=== PATIENT | female | born 1955 | race Caucasian/White ===

== ENCOUNTER → 2016-09-14 15:37 | Outpatient (CLI) | payer MEDICAID ==
[~2016-09-14 15:37] MED LIST: CELEXA20 MG PO; ELIQUIS2.5 MG PO; KLONOPIN1 MG PO; OSPHENA 60 MG; OXYCODONE HCL5 MG PO; PREMARIN45 GM VG; ROXICODONE15 MG PO; VYVANSE30 MG PO; ZYRTEC-D T1 TAB.SR . PO
[2016-09-29 11:59] VITALS: BMI 21.9
== END | disposition home or self-care (01) ==
LOC: D.LABREF 15:37
DX: M16.12 Unilateral primary osteoarthritis, left hip (principal); Z11.8 Encounter for screening for other infectious and parasitic diseases

== ENCOUNTER 2016-09-24 09:30 | Inpatient (IN) | payer BC ==
[~2016-09-24] VITALS: Ht 170.2 cm; Wt 63.6 kg
[2016-09-24 09:14] LABS: BASOPHILS 0.4 % (0.0-2.0); EOSINOPHILS 2.6 % (0-7); HEMOGLOBIN 12.2 g/dL (12-16); IMMATURE GRANULOCYTES 0.2 % (0-5); LYMPHOCYTES 34.7 % (15-50); MCV 90.9 fL (80.0-100.0); MEAN PLATELET VOLUME 9.4 fL (7.4-10.4); MONOCYTES 9.9 % (2-11); NEUTROPHILS 52.2 % (40-80); PLATELET COUNT 286 10x3/uL (130-400); RBC 4.07 10x6/uL (4.00-5.40); RDW 12.1 % (11.5-14.5); WBC 4.6 10x3/uL (4.8-10.8)
[~2016-09-24 09:30] MED LIST changes: -ELIQUIS2.5 MG PO; -OXYCODONE HCL5 MG PO; -ROXICODONE15 MG PO
[2016-09-24 09:47] LABS: CALC OSMOLALITY 274 mosm/kg (275-300); CALCIUM 8.8 mg/dL (8.5-10.1); CARBON DIOXIDE 30.6 mmol/L (21.0-32.0); CHLORIDE - SERUM 104 mmol/L (98-107); CREATININE - SERUM 0.7 mg/dL (0.6-1.3); GLUCOSE 99 mg/dL (74-106); POTASSIUM - SERUM 4.5 mmol/L (3.5-5.1); SODIUM 138 mmol/L (136-145); UREA NITROGEN 10 mg/dL (7-18); eGFR NON AFRICAN AMERICAN 90 mL/min (90-120)
[2016-09-24 10:05] LABS: APTT 31.8 SECONDS (22.8-39.4); INR 1.12 (0.85-1.17); PROTIME 14.3 SECONDS (11.6-15.0)
[2016-09-24 10:06] LABS: APPEARANCE HAZY (CLEAR); COLOR YELLOW (YELLOW); SPECIFIC GRAVITY 1.005 (1.005-1.020)
[2016-09-24 10:07] LABS: BACTERIA MODERATE /hpf (NONE SEEN); BILIRUBIN NEGATIVE (NEGATIVE); GLUCOSE NEGATIVE (NEGATIVE); KETONE NEGATIVE (NEGATIVE); LEUKOCYTE ESTERASE NEGATIVE (NEGATIVE); NITRITE NEGATIVE (NEGATIVE); PROTEIN 1+ mg/dL (NEGATIVE); RED CELLS - URINE NONE SEEN /hpf (0-5); UROBILINOGEN NORMAL (NORMAL); WHITE CELLS - URINE NSEEN /hpf (0-5)
[2016-09-29 06:44] VITALS: BP 125/68; BMI 21.9
--- NOTE | 2016-09-29 11:14 | NUR ---
UPON ARRIVAL IN THE PATIENT WAS ROLLING AROUND IN BED AND APPEARED UNCOMFORTABLE
[2016-09-29 11:45] VITALS: BP 141/70
[2016-09-29 11:59] VITALS: BP 141/70; Ht 170.2 cm; Wt 63.6 kg
[2016-09-29 12:02] VITALS: BP 141/70
--- NOTE | 2016-09-29 12:02 | NUR ---
RECIEVED PATIENT VIA BED WITH CAROL REIS FROM RECOVER ROOM AT 1145. PATIENT IS DROWSY, RATED PAIN AT A 9/10. ADMINISTERED TORADOL IV AND TYLENOL PO SCHEDULED. PATIENT IS NOW RESTING QUIETLY WITH EYES CLOSED. NO SIGNS OF DISTRESS NOTED. PALPATED BILATERAL PEDAL PULSES, +2 BILATERALLY. DRESSING TO LEFT HIP IS CLEAN, DRY AND INTACT. BED IN LOWEST POSITION, CALL LIGHT IN REACH. BED RAILS UP X'S 3. BED ALARM ON.
--- NOTE | 2016-09-29 14:49 | NUR ---
ANCEF IVPB AND PROTONIX PO. IS GIVEN TO PATIENT WITH RETURN DEMONSTRATION. PILLOW GIVEN TO PATIENT. CALL LIGHT IN REACH. WILL CONTINUE WITH PLAN OF CARE.
--- NOTE | 2016-09-29 14:55 | NUR ---
PASSWORD OBTAINED AND PLACED IN COMPUTER.
[2016-09-29 16:00] VITALS: BP 131/57
--- NOTE | 2016-09-29 16:56 | NUR ---
NO NEEDS VOICED AT THIS TIME. VISITOR AT BEDSIDE. CALL LIGHT IN REACH.
--- NOTE | 2016-09-29 17:19 | NUR ---
TORADOL AND TYLENOL PER DR. LORA'S ORDERS. WAITING ON EYE DROPS.
--- NOTE | 2016-09-29 18:12 | NUR ---
EYE DROPS TO LEFT EYE PER ORDER. NO CHANGES IN INITIAL ASSESSMENT. CALL LIGHT IN REACH. WILL CONTINUE WITH PLAN OF CARE. SCDs TO BLE. ICE TO LEFT HIP.
[2016-09-29 20:00] VITALS: BP 127/53
--- NOTE | 2016-09-29 21:27 | NUR ---
PATIENT RESTING QUIETLY NO SIGNS OF DISTRESS NOTED. ASSISTED WITH BEDPAN. VOIDED WITHOUT DIFFICULTY. SCHEDULED MEDICATIONS GIVEN. SHIFT ASSESSMENT COMPLETED. DENIES ANY NEEDS AT THIS TIME. BED LOW. CALL LIGHT IN REACH
[2016-09-30] VITALS: BP 129/56
[2016-09-30 04:00] VITALS: BP 123/55
--- NOTE | 2016-09-30 04:00 | NUR ---
PATIENT SLEEPING WITH NO DISTRESS NOTED. AGREE WITH GLASS PROCESSING WORKER ASSESSMENT.
[2016-09-30 06:07] LABS: BASOPHILS 0.2 % (0.0-2.0); EOSINOPHILS 0.2 % (0-7); HEMATOCRIT 27.3 % (36.0-48.0); HEMOGLOBIN 9.1 g/dL (12-16); IMMATURE GRANULOCYTES 0.2 % (0-5); MCH 29.7 pg (26.0-34.0); MCHC 33.3 g/dL (31.0-37.0); MCV 89.2 fL (80.0-100.0); MEAN PLATELET VOLUME 9.2 fL (7.4-10.4); MONOCYTES 15.5 % (2-11); NEUTROPHILS 63.9 % (40-80); PLATELET COUNT 246 10x3/uL (130-400); RBC 3.06 10x6/uL (4.00-5.40); RDW 12.1 % (11.5-14.5); WBC 5.7 10x3/uL (4.8-10.8)
[2016-09-30 06:45] LABS: ALBUMIN 2.5 g/dL (3.4-5.0); ALKALINE PHOSPHATASE 54 U/L (46-116); ALT (SGPT) 22 U/L (10-68); BILIRUBIN - TOTAL 0.76 mg/dL (0.2-1.3); CALC OSMOLALITY 275 mosm/kg (275-300); CALCIUM 7.7 mg/dL (8.5-10.1); CARBON DIOXIDE 25.1 mmol/L (21.0-32.0); CHLORIDE - SERUM 106 mmol/L (98-107); CREATININE - SERUM 0.7 mg/dL (0.6-1.3); GLUCOSE 107 mg/dL (74-106); POTASSIUM - SERUM 3.4 mmol/L (3.5-5.1); PROTEIN - SERUM 5.3 g/dL (6.4-8.2); SODIUM 139 mmol/L (136-145); UREA NITROGEN 8 mg/dL (7-18); eGFR NON AFRICAN AMERICAN 90 mL/min (90-120)
--- NOTE | 2016-09-30 07:00 | NUR ---
REPORT RECEIVED FROM DIETARY AIDE NURSE. CALL LIGHT IN REACH.
[2016-09-30 08:29] VITALS: BP 113/54
--- NOTE | 2016-09-30 09:50 | NUR ---
ASSISTED TO BSC PER PT. VOIDED 300 CC.
--- NOTE | 2016-09-30 10:11 | NUR ---
ASSESSMENT COMPLETED. AM MEDS ADMINISTERED. CALL LIGHT IN REACH. WILL CONTINUE WITH PLAN OF CARE.
--- NOTE | 2016-09-30 11:11 | NUR ---
SITTING IN CHAIR,WITHOUT DISTRESS.CALL LIGHT IN REACH
--- NOTE | 2016-09-30 11:16 | NUR ---
* Is the patient Alert and Oriented? Yes 0 * How many steps to enter\exit or inside your home? 0 0 * PCP Rachel Souza APN 0 * Pharmacy [facility] on [address] 0 * Preadmission Environment Home with Family 0 * ADLs Independent 0 * List name and contact numbers for known caregivers / representatives who currently or will assist patient after discharge: William Blackmon [phone] 0 * Additional services required to return to the preadmission environment? Yes 0 * Can the patient safely return to the preadmission environment? Yes 0 * Has this patient been hospitalized within the prior 30 days at any hospital? No 09/30/2016 11:17 DCP: Discharge Planning Patient Name: LUCY OSORIO Admission Status: Elective Accout number: [id number] Admission Date: 09-29-2016 : 1955 Admission Diagnosis:UNILATERAL PRIMARY OSTEOARTHRITIS, LEFT HIP Attending: KARLA Current LOS: 1 Anticipated DC Date: 10-01-2016 Planned Disposition: Outpatient PT\OT Primary Insurance: [employer] Discharge Planning Comments: CM met with patient to assess dc plans/needs. Patient states she lives at home with William Blackmon. She reports she is independent with all ADL's & IADL's. At dc, she will return home. She has chosen [facility] for outpatient physical therapy - Appt. scheduled 10/05 @ 1300. Rolling walker will be ordered & delivered to hospital through [facility] prior to discharge. Anticipate dc tomorrow afternoon. CM will follow. Fitter Tacker: Kasie Mejias
[2016-09-30 12:28] VITALS: BP 122/50
--- NOTE | 2016-09-30 12:59 | NUR ---
WANTS TO GET I&O CATH BUT I EXPLAINED TO HER THAT SHE VOIDED EARLIER AND THAT IS ONLY FOR WHEN SHE IS UNABLE TO VOID FOR 8-10 HOURS. VERBALIZED UNDERSTANDING.
--- NOTE | 2016-09-30 14:52 | NUR ---
TYLENOL SULMA SMITH RN.
--- NOTE | 2016-09-30 16:20 | NUR ---
NO NEEDS VOICED AT THIS TIME. CALL LIGHT IN REACH.
[2016-09-30 16:28] VITALS: BP 125/57
--- NOTE | 2016-09-30 18:03 | NUR ---
OXY IR AND TYLENOL PO PER CAROL AWAN. NO CHANGES IN INITIAL ASSESSMENT. SCDs TO BLE. CALL LIGHT IN REACH. WILL CONTINUE WITH PLAN OF CARE.
--- NOTE | 2016-09-30 18:31 | NUR ---
NO CHANGES IN INITIAL ASSESSMENT. CALL LIGHT IN REACH. SCDs TO BLE. WILL CONTINUE WITH PLAN OF CARE. BED ALARM IS ON.
[2016-09-30 19:00] VITALS: BP 92/52
--- NOTE | 2016-09-30 19:00 | NUR ---
BEDSIDE REPORT RECEIVED AND CARE OF PT ASSUMED. PT LYING IN SEMI BOTELLO'S POSITION VISITING WITH SPOUSE. IV IN RIGHT FA SL. DRESSING ON LEFT HIP CLEAN AND DRY. RE-FILLED ICE PACK AND APPLIED TO HIP. WILL MONITOR SALINAS FOR NEEDS.
--- NOTE | 2016-09-30 21:41 | NUR ---
HS MEDICATIONS GIVEN TO INCLUDE OXY IR PER PRN ORDER FOR PAIN. WILL CONTINUE TO MONITOR FOR NEEDS.
--- NOTE | 2016-09-30 21:45 | NUR ---
ASSISTED UP TO USE BSC. PT AMBULATING WELL WITH WALKER WITH SOME ASSISTANCE WHEN MOVING LEGS TO SIDE OF BED. WILL CONTINUE TO MONITOR FOR NEEDS. CALL LIGHT WITHIN REACH.
--- NOTE | 2016-10-01 03:07 | NUR ---
ASSISTED UP TO BSC TO VOID. GAVE SCHEDULED TYLENOL 1000 MG PO...GAVE A LITTLE LATE PT SLEEPING WELL OVER LAST COUPLE OF HOURS. POSITIONED BACK IN BED FOR COMFORT AND RE-FILLED ICE PACK. WILL CONTINUE TO MONITOR FOR NEEDS.
[2016-10-01 06:10] LABS: BASOPHILS 0.5 % (0.0-2.0); HEMOGLOBIN 8.7 g/dL (12-16); IMMATURE GRANULOCYTES 0.2 % (0-5); LYMPHOCYTES 15.6 % (15-50); MCH 29.5 pg (26.0-34.0); MCHC 32.2 g/dL (31.0-37.0); MONOCYTES 13.7 % (2-11); PLATELET COUNT 234 10x3/uL (130-400); RBC 2.95 10x6/uL (4.00-5.40); RDW 12.4 % (11.5-14.5); WBC 6.3 10x3/uL (4.8-10.8)
[2016-10-01 06:34] LABS: ALBUMIN 2.4 g/dL (3.4-5.0); ALKALINE PHOSPHATASE 54 U/L (46-116); ALT (SGPT) 23 U/L (10-68); CALC OSMOLALITY 275 mosm/kg (275-300); CALCIUM 8.2 mg/dL (8.5-10.1); CARBON DIOXIDE 25.1 mmol/L (21.0-32.0); CHLORIDE - SERUM 106 mmol/L (98-107); CREATININE - SERUM 0.6 mg/dL (0.6-1.3); GLUCOSE 120 mg/dL (74-106); PROTEIN - SERUM 5.4 g/dL (6.4-8.2); SODIUM 138 mmol/L (136-145); UREA NITROGEN 9 mg/dL (7-18); eGFR NON AFRICAN AMERICAN > 90 mL/min (90-120)
[2016-10-01 06:35] LABS: MCV 91.5 fL (80.0-100.0)
[2016-10-01 06:38] LABS: POTASSIUM - SERUM 3.4 mmol/L (3.5-5.1)
--- NOTE | 2016-10-01 06:48 | NUR ---
POTASSIUM LEVEL 3.4 THIS AM REQUIRING COVERAGE WITH 40MEQ PO POTASSIUM PER ELECTROLYTE PROTOCOL. WILL RE-CHECK IN 4 HOURS.
[2016-10-01] MEDS ORDERED: OXYCODONE HCL5 MG PO (07:08)
[2016-10-01] MEDS ORDERED: ELIQUIS2.5 MG PO (07:08)
[2016-10-01] MEDS ORDERED: ROXICODONE15 MG PO (07:13)
[2016-10-01 09:52] VITALS: BP 110/55
[2016-10-01 11:48] VITALS: BP 135/58
--- NOTE | 2016-10-01 13:00 | NUR ---
CHANGED DRESSING TO LEFT HIP. ALL GYPSY INTACT. NO REDNESS. STERILE TECHNIQUE MAINTAINED. CLEANED WITH STERILE WATER WOUND SPRAY, PATTED DRY WITH 4X4 GAUZE. APPLIED DRESSING.
--- NOTE | 2016-10-01 13:43 | NUR ---
10/01/2016 13:41 DCP: Discharge Planning Patient Name: LUCY OSORIO Encounter No: [id number] : 1955 Primary Insurance: [employer] Anticipated DC Date: 10-01-2016 Planned Disposition: Outpatient PT\OT External Planned Provider: [facility] DCP follow-up note: DC order rec'd. Patient and family in agreement with discharge plan. No changes to plan. Rolling walker has been delivered. Kasie Mejias
--- NOTE | 2016-10-01 15:16 | NUR ---
PATIENT LEAVING VIA WHEELCHAIR.
--- NOTE | 2016-10-06 10:25 | DS ---
PATIENT:LUCY OSORIO :57 MEDICAL RECORD: [id number] DISCHARGE SUMMARY ADMISSION DATE: 09/29/16 DISCHARGE DATE: 10/01/16 DATE OF ADMISSION: 09/29/2016. DATE OF DISCHARGE: 10/01/2016. ADMITTING DIAGNOSIS: Left hip degenerative joint disease. DISCHARGE DIAGNOSES: Left hip degenerative joint disease, postop acute blood loss anemia. HISTORY: This is a pleasant 61-year-old female with advanced degenerative changes in her hip. She came into the hospital and underwent a left total hip arthroplasty. She has overall done very well. It was felt that she could be discharged today, continue on post-hip protocols, continue progressing her weightbearing with assistance with therapy and walker. She can be on Eliquis for anticoagulation therapy. She is going to be on pain meds. She is going to see us an outpatient in 2 weeks. We will change her dressing. She should call if she is having problems. We will proceed from this juncture. TRANSINT:[id number] Voice Confirmation ID: [id number] DOCUMENT ID: [id number] JAIRO LORA MD at 1025 CC: [id number] DICTATION DATE: 10/01/16 0710 NEON SIGN WORKER: 10/01/16 0816 DIS IN 10/01/16 [id number] [place] [address]
--- NOTE | 2016-10-06 10:25 | OP ---
PATIENT NAME: LUCY OSORIO MEDICAL RECORD: [id number] :[birth year] LOCATION:[facility] ADMISSION DATE:09/29/16 SURGEON: JAIRO MAYFIELD MD DATE OF OPERATION: 09/29/2016 PREOPERATIVE DIAGNOSIS: Left hip degenerative joint disease. POSTOPERATIVE DIAGNOSIS: Left hip degenerative joint disease. PROCEDURE PERFORMED: Left total hip arthroplasty using Biomet system. SURGEON: John Mayfield MD. ANESTHESIA: General with a block for postop pain. ESTIMATED BLOOD LOSS: Minimal, 100 mL. CONDITION: She tolerated the procedure well, was transferred to recovery room in stable condition. INDICATIONS: A 61-year-old female with advanced degenerative changes of her hip, no longer tolerating nonoperative treatments including therapy, injections, pain meds. She wants to have a hip replacement. We discussed risks and alternatives including blood loss, scar, pain, need for further procedure, anesthesia risk, nerve, artery and vein injuries, leg length discrepancy, failure of the components. She understood and wished to proceed. OPERATIVE REPORT: The patient was taken to the operating room and placed in supine position. General anesthesia was obtained. She had a block placed in the preop holding area. She received Ancef per protocol. The left hip was confirmed to be the correct hip. She was placed in a lateral position with the left hip up. She was prepped and draped in the normal fashion. She had a secondary ChloraPrep and then Ioban dressing placement. This was followed by a lateral incision, taking down to the IT band. The IT band was split. Charnley retractor was placed. The anterior portion of the gluteus medius and capsule were taken off as a unit. The hip was dislocated. Using the guide, the femoral neck cut was made. The anterior and posterior acetabular retractors were then placed. The soft tissue was removed from about the rim. She was then sequentially reamed up to a 49. Following which, a 50 press-fit cup was placed. This was felt to be in good position. She was then irrigated. The leg was taken off the bed into a bag. She had a cookie cutter and a canal finder followed by broaching up to a size 16. X-ray was taken in the room. X-rays indicated that the leg lengths were very close with the standard head and neck. We therefore took out everything, copiously irrigated and placed the final 16 stem with a 44 head standard neck length high-offset stem. This reduced well. She felt very stable in flexion and extension. She was copiously irrigated. Following this, 2 JuggerKnot suture anchors were placed in the trochanter area. The gluteus medius capsule was brought back to the trochanter with the sutures. She was then irrigated following which her IT band was closed with #1 barbed PDS, #2 double-stranded looped PDS. I then closed with 2-0 Vicryl, kishor, and placed a soft dressing. She was awakened and transferred to the recovery room in stable condition, having tolerated the procedure well. TRANSINT:[id number] Voice Confirmation ID: [id number] DOCUMENT ID: [id number] OPERATIVE REPORT [id number] LUCY OSORIO, JAIRO PAINTING MD at 1025 CC: [id number] DICTATION DATE: 09/29/16 110 COLLATOR: 09/29/16 1155 DIS IN 10/01/16 [facility] [address] [place] [address]
== END 2016-10-01 16:00 | disposition home or self-care (01) | DRG 470 ==
LOC: D.SDCHOLD 09:30 → D.MS 09-29 05:55 → D.SDCHOLD 09-29 09:30 → D.MS 09-29 11:01
PROVIDERS: Family Medicine; ADMIT Orthopaedic Surgery Sports Medicine
PROC: 0SRB0JA Replacement of Left Hip Joint with Synthetic Substitute, Uncemented, Open Approach (ICD-10-PCS; principal; 2016-09-29 08:15)
DX: M16.12 Unilateral primary osteoarthritis, left hip (principal); D62 Acute posthemorrhagic anemia; F90.8 Attention-deficit hyperactivity disorder, other type; F41.9 Anxiety disorder, unspecified

== ENCOUNTER 2018-10-12 09:49 | Emergency (ER) | payer MEDICAID ==
[~2018-10-12] VITALS: Ht 170.2 cm; Wt 52.8 kg
[~2018-10-12 09:49] MED LIST changes: +ELIQUIS2.5 MG PO; +OXYCODONE HCL5 MG PO; +ROXICODONE15 MG PO
[2018-10-12 09:50] VITALS: BP 152/78; Ht 170.2 cm; Wt 52.8 kg
[2018-10-12] MEDS ORDERED: KLONOPIN1 MG PO (09:55)
[2018-10-12] MEDS ORDERED: TORADOL10 MG PO (11:16)
== END 2018-10-12 11:58 | disposition home or self-care (01) ==
LOC: D.ER 09:49
DX: R07.82 Intercostal pain (principal)